=== PATIENT | male | born 2000 | race Two or more races ===

== ENCOUNTER 2025-05-06 03:11 | Emergency (ER) | payer MEDICAID, OTHER ==
[~2025-05-06] VITALS: Ht 175.3 cm; Wt 76.7 kg
[2025-05-06] MEDS ORDERED: IBUP-1454 PO (04:07)
--- NOTE | 2025-05-06 04:07 | ED.PDOC ---
History of Present Illness(SKN HPI Comments Pt presents with cc of laceration to his left middle finger x 0130. Pt was attempting to reattach a razor blade to a knife when it slipped. Chief Complaint: Laceration Time Seen by MD: 03:19 History of Present Illness: Nurses Notes, Medications, Allergies Allergies: Coded Allergies: No Known Drug Allergy (Verified Allergy, Unknown, 05/06/25) Home Meds Active Scripts Hydrocodone-Acetaminophen (Hydrocodone Bitartrate/AC 5-325 mg) 1 Tab Tab, 1 TAB PO TID for 5 Days, #15 TAB Prov:SIRISHA ROA MD 05/06/25 Information Source: Patient Mode of Arrival: Ambulatory Physical Exam General Appearance: No Apparent Distress, Normal HEENT: Pharynx Normal Neck: Full Range of Motion, Non-Tender Respiratory: Lungs Clear, No Respiratory Distress, Normal Breath Sounds Cardiovascular: No Murmur, Normal Peripheral Pulses, Regular Rate/Rhythm Breast Exam: Deferred Gastrointestinal: Non Tender, Soft Genitalia: Deferred Pelvic: Deferred Rectal: Deferred Extremities: Normal capillary refill, Normal range of motion Musculoskeletal : Apperance: Normal Neurologic: Alert, No Motor Deficits, Normal Affect, Normal Mood, No Sensory Deficits Cerebellar Function: Normal Reflexes: NOT DONE Skin: Dry, Lacerations (Superficial laceration to left 3rd digit distal aspect bleeding controlled noted avulsion no obvious foreign body), Normal Color, Warm Lymphatic: No Adenopathy Was a procedure done? Was a procedure done?: No Differential Diagnosis (INTG) Differential Diagnosis: Cellulitis, Contusion, Hematoma, Laceration, Puncture Wound Differential Diagnosis: Abscess X-Ray, Labs, Meds, VS Vital Signs Date Time Temp Pulse Resp B/P (MAP) Pulse Ox O2 Delivery O2 Flow Rate FiO2 05/06/25 04:15 97.9 84 12 123/86 (98) 97 97.9 05/06/25 03:13 97.5 102 12 134/98 96 97.5 X-Ray, Labs, Meds, VS Comment Superficial avulsion pressure dressing applied bleeding controlled advised to f ollow up PCP in 2-3 days as necessary ER return precautions given patient indicates understanding agrees with discharge plan of care. Time of 1ST Reevaluation: 03:19 Reevaluation 1ST: Unchanged Time of 2ND Reevaluation: 04:07 Reevaluation 2ND: Improved Patient Education/Counseling: Diagnosis, Treatment, Need For Follow Up Family Education/Counseling: No Family Present SEPSIS Sepsis Screen Date sepsis recognized/suspect: May 06, 2025 Time Sepsis recognized/suspect: 315 Recent Procedure: No On Antibiotic Therapy: No Respiratory Rate >20: No Heart Rate >90: Yes Temp<36 C (96.8 F) or >38.3 C: No SBP <90 or MAP <65 mmHG: No New Acute Mental Status Change: No Is the patient on CPAP, BIPAP,: No Vital Signs Date Time Temp Pulse Resp B/P (MAP) Pulse Ox O2 Delivery O2 Flow Rate FiO2 05/06/25 04:15 97.9 84 12 123/86 (98) 97 97.9 05/06/25 03:13 97.5 102 12 134/98 96 97.5 Departure 1 Departure Time of Disposition: 04:06 Impression: Primary Impression: Avulsion of finger tip Qualified Codes: S61.209A - Unspecified open wound of unspecified finger without damage to nail, initial encounter Disposition: 01 HOME / SELF CARE / HOMELESS Condition: Stable Discharged With: Self Critical Care Note Critical Care Time?: No Stability Stability form required: CECELIA Avalos May 06, 2025 04:07
[2025-05-06 04:15] VITALS: BP 123/86; PULSE 84; RESP 12; TEMP 97.9; O2SAT 97
[2025-05-06] MEDS ORDERED: HYDR-4902 PO (15:20)
== END 2025-05-06 04:17 | disposition home or self-care (01) ==
LOC: ER 03:11
DX: S61.213A Laceration without foreign body of left middle finger without damage to nail, initial encounter (principal); Z79.891 Long term (current) use of opiate analgesic; X58.XXXA Exposure to other specified factors, initial encounter; Y93.89 Activity, other specified; Y92.89 Other specified places as the place of occurrence of the external cause; Y99.8 Other external cause status

== ENCOUNTER 2025-05-06 10:41 | Emergency (ER) | payer MEDICAID ==
[~2025-05-06] VITALS: Ht 177.8 cm; Wt 76.2 kg
[~2025-05-06 10:41] MED LIST: IBUP-1454 PO
[2025-05-06 10:53] VITALS: BP 124/93; PULSE 74; RESP 18; TEMP 98; O2SAT 98
--- NOTE | 2025-05-06 14:33 | ED.PDOC ---
History of Present Illness(SKN Chief Complaint: Upper Extremity Allergies: Coded Allergies: No Known Drug Allergy (Verified Allergy, Unknown, 05/06/25) Home Meds Active Scripts Ibuprofen (Ibuprofen) 600 Mg Tab, 1 TAB PO TID PRN for 5 Days, #15 TAB Prov:CECELIA GATES MEDICAL COST CONSULTANT 05/06/25 Mode of Arrival: Ambulatory Past Medical History PAST MEDICAL HISTORY: Denies Surgical History: Denies all surgeries Family History Family History: Reviewed,noncontributory to illness, No family hx of Cancer, No family hx of DM, No family hx of Heart nitesh, No family hx of HTN, No family hx ofKidney nitesh, No family hx of Liver nitesh, No family hx of Lung nitesh, No family hx of Stroke Social History Smoker: Non-Smoker Alcohol: Denies ETOH Use Drugs: Denies Drug Use Lives In: Home Constitutional: denies: chills, diaphoresis, fatigue, fever, malaise, sweats, weakness, others EENTM: denies: blurred vision, double vision, ear bleeding, ear discharge, ear drainage, ear pain, ear ringing, eye pain, eye redness, hearing loss, mouth pain, mouth swelling, nasal discharge, nose bleeding, nose congestion, nose pain, photophobia, tearing, throat pain, throat swelling, voice changes, others Respiratory: denies: cough, hemoptysis, orthopnea, SOB at rest, shortness of breath, SOB with excertion, stridor, wheezing, others Cardiovascular: denies: chest pain, dizzy spells, diaphoresis, Dyspnea on exertion, edema, irregular heart beat, left arm pain, lightheadedness, palpitations, PND, syncope, others Gastrointestinal: denies: abdomen distended, abdominal pain, blood streaked bowels, constipated, diarrhea, dysphagia, difficulty swallowing, hematemesis, melena, nausea, poor appetite, poor fluid intake, rectal bleeding, rectal pain, vomiting, others Genitourinary: denies: burning, dysuria, flank pain, frequency, hematuria, incontinence, penile discharge, penile sore, pain, testicle pain, testicle swelling, urgency, others Neurological: denies: dizziness, fainting, headache, left sided numbness, left sided weakness, numbness, paresthesia, pre-existing deficit, right sided numbness, right sided weakness, seizure, speech problems, tingling, tremors, weakness, others Musculoskeletal: denies: back pain, gout, joint pain, joint swelling, muscle pain, muscle stiffness, neck pain, others Integumetry: reports: laceration; denies: bruises, change in color, change in hair/nails, dryness, lesions, lumps, rash, wounds, others Allergic/Immunocompromised: denies: Difficulty Healing, Frequent Infections, Hives, Itching, others Hematologic/Lymphatic: denies: anemia, blood clots, easy bleeding, easy bruising, swollen glands, others Endocrine: denies: excessive hunger, excessive sweating, excessive thirst, excessive urination, flushing, intolerance to cold, intolerance to heat, unexplained weight gain, unexplained weight loss, others Psychiatric: denies: anxiety, bipolar disorder, depression, hopeless, panic disorder, schizophrenia, sleepless, suicidal, others All Other Systems: Reviewed and Negative Was a procedure done? Was a procedure done?: No Differential Diagnosis (INTG) Differential Diagnosis: Laceration X-Ray, Labs, Meds, VS Vital Signs Date Time Temp Pulse Resp B/P (MAP) Pulse Ox O2 Delivery O2 Flow Rate FiO2 05/06/25 10:53 98.0 74 18 124/93 98 98.0 Time of 1ST Reevaluation: 14:54 Reevaluation 1ST: Unchanged Patient Education/Counseling: Diagnosis, Treatment Family Education/Counseling: No Family Present SEPSIS Sepsis Screen Date sepsis recognized/suspect: May 06, 2025 Time Sepsis recognized/suspect: 1055 Recent Procedure: No On Antibiotic Therapy: No Respiratory Rate >20: No Heart Rate >90: No Temp<36 C (96.8 F) or >38.3 C: No SBP <90 or MAP <65 mmHG: No New Acute Mental Status Change: No Is the patient on CPAP, BIPAP,: No Vital Signs Date Time Temp Pulse Resp B/P (MAP) Pulse Ox O2 Delivery O2 Flow Rate FiO2 05/06/25 10:53 98.0 74 18 124/93 98 98.0 Critical Care Note Critical Care Time?: No Stability Stability form required: No Heart Score Heart Score: Heart Score Response (Comments) Value History N/A 0 EKG N/A 0 Age N/A 0 Risk Factors N/A 0 Troponin N/A 0 Total 0 I personally scribed for SIRISHA ROA MD ([email or web address]) on 05/06/25 at 14:33. Electronically submitted by Sarai Bullard ([facility]). I personally scribed for SIRISHA ROA MD ([email or web address]) on 05/06/25 at 14:35. Electronically submitted by Sarai Bullard ([facility]). I personally scribed for SIRISHA ROA MD ([email or web address]) on 05/06/25 at 14:39. Electronically submitted by Sarai Bullard ([facility]). SIRISHA ROA MD May 06, 2025 14:33
--- NOTE | 2025-05-06 14:42 | ED.PDOC ---
History of Present Illness HPI Comments 24 year-old male presents to the ED with a chief complaint of laceration to the L hand, 3rd digit. Patient was seen in the ED earlier this morning, approx 0300, and states his prescribed pain medications have not been relieving any pain. Upon time of evaluation, the laceration site is wrapped, bleeding controlled. There are no further complaints or modifying factors at this time. Chief Complaint: Upper Extremity Time Seen by MD: 14:33 Reviewed Notes: Medications, Allergies Allergies: Coded Allergies: No Known Drug Allergy (Verified Allergy, Unknown, 05/06/25) Home Meds Active Scripts Ibuprofen (Ibuprofen) 600 Mg Tab, 1 TAB PO TID PRN for 5 Days, #15 TAB Prov:CECELIA GATES ALDA 05/06/25 Information Source: Patient Mode of Arrival: Ambulatory Severity: Mild Timing: Hours Duration: Since onset Medication Refill: For: Pain Past Medical History PAST MEDICAL HISTORY: Denies Surgical History: Denies all surgeries Family History Family History: Reviewed,noncontributory to illness, No family hx of Cancer, No family hx of DM, No family hx of Heart nitesh, No family hx of HTN, No family hx ofKidney nitesh, No family hx of Liver nitesh, No family hx of Lung nitesh, No family hx of Stroke Social History Smoker: Non-Smoker Alcohol: Denies ETOH Use Drugs: Denies Drug Use Lives In: Home Constitutional: denies: chills, diaphoresis, fatigue, fever, malaise, sweats, weakness, others EENTM: denies: blurred vision, double vision, ear bleeding, ear discharge, ear drainage, ear pain, ear ringing, eye pain, eye redness, hearing loss, mouth pain, mouth swelling, nasal discharge, nose bleeding, nose congestion, nose pain, photophobia, tearing, throat pain, throat swelling, voice changes, others Respiratory: denies: cough, hemoptysis, orthopnea, SOB at rest, shortness of breath, SOB with excertion, stridor, wheezing, others Cardiovascular: denies: chest pain, dizzy spells, diaphoresis, Dyspnea on exertion, edema, irregular heart beat, left arm pain, lightheadedness, palpitations, PND, syncope, others Gastrointestinal: denies: abdomen distended, abdominal pain, blood streaked bowels, constipated, diarrhea, dysphagia, difficulty swallowing, hematemesis, melena, nausea, poor appetite, poor fluid intake, rectal bleeding, rectal pain, vomiting, others Genitourinary: denies: burning, dysuria, flank pain, frequency, hematuria, incontinence, penile discharge, penile sore, pain, testicle pain, testicle swelling, urgency, others Neurological: denies: dizziness, fainting, headache, left sided numbness, left sided weakness, numbness, paresthesia, pre-existing deficit, right sided numbness, right sided weakness, seizure, speech problems, tingling, tremors, weakness, others Musculoskeletal: denies: back pain, gout, joint pain, joint swelling, muscle pain, muscle stiffness, neck pain, others Integumetry: reports: laceration; denies: bruises, change in color, change in hair/nails, dryness, lesions, lumps, rash, wounds, others Allergic/Immunocompromised: denies: Difficulty Healing, Frequent Infections, Hives, Itching, others Hematologic/Lymphatic: denies: anemia, blood clots, easy bleeding, easy bruising, swollen glands, others Endocrine: denies: excessive hunger, excessive sweating, excessive thirst, excessive urination, flushing, intolerance to cold, intolerance to heat, unexplained weight gain, unexplained weight loss, others Psychiatric: denies: anxiety, bipolar disorder, depression, hopeless, panic disorder, schizophrenia, sleepless, suicidal, others All Other Systems: Reviewed and Negative Physical Exam General Appearance: Mild Distress, Normal HEENT: Normal ENT Inspection, Pharynx Normal, TMs Normal Neck: Full Range of Motion, Non-Tender, Normal, Normal Inspection Respiratory: Chest Non-Tender, Lungs Clear, No Accessory Muscle Use, No Respiratory Distress, Normal Breath Sounds Cardiovascular: No Edema, No JVD, No Murmur, No Gallop, Normal Peripheral Pulses, Regular Rate/Rhythm Breast Exam: Deferred Gastrointestinal: No Organomegaly, Non Tender, No Pulsatile Mass, Normal Bowel Sounds, Soft Genitalia: Deferred Pelvic: Deferred Rectal: Deferred Extremities: No calf tenderness, Normal capillary refill, Normal inspection, Normal range of motion, Non-tender, No pedal edema, Other (Laceration tip of the left middle finger repaired this morning patient is still in pain) Neurologic: Alert, mental health unit lead psychologist II-XII nml as Tested, No Motor Deficits, Normal Affect, Normal Mood, No Sensory Deficits Cerebellar Function: Normal Reflexes: Normal Skin: Dry, Mottled, Normal Color, Warm Peripheral Pulses: 1+ carotid (R), 1+ carotid (L) Lymphatic: No Adenopathy Was a procedure done? Was a procedure done?: No Differential Dx Considerations may include: pain medication X-Ray, Labs, Meds, VS Vital Signs Date Time Temp Pulse Resp B/P (MAP) Pulse Ox O2 Delivery O2 Flow Rate FiO2 05/06/25 10:53 98.0 74 18 124/93 98 98.0 X-Ray, Labs, Meds, VS Comment Tip of the finger is exposed again cleaned up and redressed Patient will be discharged home with pain medication Time of 1ST Reevaluation: 14:54 Reevaluation 1ST: Unchanged Time of 2ND Reevaluation: 15:18 Reevaluation 2ND: Improved Consultation: PCP Patient Education/Counseling: Diagnosis, Treatment, Prognosis, Need For Follow Up Family Education/Counseling: Diagnosis, Treatment, Prognosis, Need For Follow Up SEPSIS Sepsis Screen Date sepsis recognized/suspect: May 06, 2025 Time Sepsis recognized/suspect: 1055 Recent Procedure: No On Antibiotic Therapy: No Respiratory Rate >20: No Heart Rate >90: No Temp<36 C (96.8 F) or >38.3 C: No SBP <90 or MAP <65 mmHG: No New Acute Mental Status Change: No Is the patient on CPAP, BIPAP,: No Vital Signs Date Time Temp Pulse Resp B/P (MAP) Pulse Ox O2 Delivery O2 Flow Rate FiO2 05/06/25 10:53 98.0 74 18 124/93 98 98.0 Departure 1 Departure Time of Disposition: 14:54 Impression: Primary Impression: Avulsion of finger tip Additional Impression: Pain management Disposition: HOME / SELF CARE / HOMELESS Condition: Fair Additional Instructions: Wound clean and dry and follow up with your PCP e-Prescriptions Hydrocodone-Acetaminophen (Hydrocodone Bitartrate/AC 5-325 mg) 1 Tab Tab 1 TAB PO TID for 5 Days, #15 TAB Prov: SIRISHA ROA MD 05/06/25 Discharged With: Self Critical Care Note Critical Care Time?: No Stability Stability form required: No Heart Score Heart Score: Heart Score Response (Comments) Value History N/A 0 EKG N/A 0 Age <45 0 Risk Factors No known risk factors 0 Troponin N/A 0 Total 0 I personally scribed for SIRISHA ROA MD ([email or web address]) on 05/06/25 at 14:42. Electronically submitted by Sarai Bullard ([email or web address]). SIRISHA ROA MD May 06, 2025 14:42
[2025-05-06] MEDS ORDERED: HYDR-4902 PO (15:20)
== END 2025-05-06 15:34 | disposition home or self-care (01) ==
LOC: ER 10:41
DX: S61.213A Laceration without foreign body of left middle finger without damage to nail, initial encounter (principal); X58.XXXA Exposure to other specified factors, initial encounter; Y93.89 Activity, other specified; Y92.89 Other specified places as the place of occurrence of the external cause; Y99.8 Other external cause status